=== PATIENT | female | born 1950 | race Caucasian/White ===

== ENCOUNTER → 2020-12-31 10:43 | Outpatient (BNVA) | payer MEDICARE, OTHER, SELFPAY | PROVIDERS: Family Provider Student in an Organized Health Care Education/Training Program; PCP Student in an Organized Health Care Education/Training Program; Visit Provider Nurse Practitioner Family | DX: E04.9 Nontoxic goiter, unspecified (principal); Z92.29 Personal history of other drug therapy; Z51.81 Encounter for therapeutic drug level monitoring; R13.10 Dysphagia, unspecified; K21.9 Gastro-esophageal reflux disease without esophagitis | CPT/HCPCS: 80053; 84439; 84443; 84481; 85025 ==

== ENCOUNTER 2021-01-20 12:57 | Outpatient (CLI) | payer MEDICARE, OTHER, SELFPAY ==
--- NOTE | 2021-01-20 13:15 | US_ITS ---
WS: [id number] ULTRASOUND THYROID TECHNIQUE: Ultrasound of the thyroid. CLINICAL INFORMATION: R13.10 - Dysphagia, unspecified COMPARISON: None. FINDINGS: Thyroid: Right and left thyroid lobes are normal in size and echotexture. No thyroid nodules are pres ent. Right thyroid lobe: 3.1 cm x 1.6 cm x 1.1 cm Left thyroid lobe: 2.8 cm x 0.9 cm x 1.5 cm. Isthmus: 1.5 mm. Cervical lymphadenopathy: None. US/US thyroid [id number] IMPRESSION: Normal thyroid ultrasound examination.
== END 2021-01-20 12:58 | disposition home or self-care (01) ==
LOC: US 12:57
PROVIDERS: PCP Student in an Organized Health Care Education/Training Program; Visit Provider Nurse Practitioner Family
DX: R13.10 Dysphagia, unspecified (principal)
CPT/HCPCS: 76536

== ENCOUNTER → 2021-01-28 10:52 | Outpatient (BNVA) | payer MEDICARE, OTHER, SELFPAY | PROVIDERS: PCP Nurse Practitioner Family; Visit Provider Nurse Practitioner Family | DX: R35.0 Frequency of micturition (principal); R11.2 Nausea with vomiting, unspecified; R13.10 Dysphagia, unspecified; K21.9 Gastro-esophageal reflux disease without esophagitis; K44.9 Diaphragmatic hernia without obstruction or gangrene | CPT/HCPCS: 80053; 81000; 85025 ==

== ENCOUNTER → 2021-02-10 08:59 | Outpatient (BNVA) | payer MEDICARE, OTHER, SELFPAY | PROVIDERS: PCP Nurse Practitioner Family; Visit Provider Surgery | DX: R13.10 Dysphagia, unspecified (principal); Z20.822 Contact with and (suspected) exposure to COVID-19 | CPT/HCPCS: 87635 ==

== ENCOUNTER 2021-02-17 09:25 | Day surgery (SDC) | payer MEDICARE, OTHER, SELFPAY ==
[2021-02-15 13:23] VITALS: BMI 26.5
[2021-02-17 10:15] VITALS: BP 131/84; PULSE 75; RESP 18; TEMP 36.6; O2SAT 98
--- NOTE | 2021-02-17 10:23 | ANES.PREANE2 ---
Pre-Anesthetic Assessment Pre-Anesthetic Assessment: Height/Weight: Height 1.6 m Weight 68.039 kg Preop Diagnosis: upper gi symptoms Proposed Procedure: Operation Date: 02/17/21 11:00 Proposed Procedures p EGD Dilation W/ Balloon 19261 R13.10(Not Applicable) - Luis Daniel MD Was Beta Rad taken within 24 hours: N/A Was Clonidine taken within 24 hours: N/A Social: Social History: No alcohol and No tobacco Exam: Pre-Anes Outpt Exam: alert, oriented x 3, clear to auscultation bilaterally and regular rate & rhythm Airway: Submandibular: WNL Cervical ROM: WNL MP: 2 Dentition: Full CV/HEM: CV/HEM: DVT GI: GI: GERD Anesthetic Plan: ASA status: 2 Anesthesia: MAC Risk of > 500 ml blood loss (7ml/kg in children): No PFSH Anesthesia PFSH: Medical History DVT (deep venous thrombosis) Dysphagia GERD (gastroesophageal reflux disease) Hiatal hernia Kidney disease Osteoporosis Pulmonary embolus Surgical History History of abdominal hysterectomy History of appendectomy History of esophagogastroduodenoscopy (EGD) (~09/2019) History of laparoscopic cholecystectomy History of tonsillectomy and adenoidectomy Status post colonoscopy Family History Denies family history of Anesthesia complication Bleeding disorder Social History Smoking and tobacco status: never smoked Second hand smoke exposure: No Alcohol intake: never Adopted: No Caregiver/support person: Yes Lives independently: Yes Housing: House Marital status: / service: No Current occupational status: retired Current occupational exposures/hazards: No Pets and animals: No History of recent travel: No Sexually active: No Current gender identity: Female Michael/Mormonism: Zoroastrianism Special michael needs: No Agree to transfusion: No Financial difficulty paying for basics: Decline to Answer Data Anesthesia Cardiac Studies: No Data to Display
[2021-02-17] MEDS: sodium chloride 0.9% 1,000 ML 30 ML IV (10:26)
[2021-02-17 11:56] VITALS: BP 118/68; PULSE 74; RESP 18; TEMP 36.6; O2SAT 99
--- NOTE | 2021-02-17 12:02 | W.PM.OPSUD ---
Surgery/Procedure H&P Update DATE OF PROCEDURE: February 17, 2021 DATE H&P PERFORMED: 02/08/21 H&P UPDATE INFORMATION: I have reviewed H&P completed within last 30 days, I have examined patient prior to procedure and No changes to prior documentation PREOP DIAGNOSIS: upper gi symptoms PLANNED PROCEDURE: Operation Date: 02/17/21 11:00 Proposed Procedures p EGD Dilation W/ Balloon 00091 R13.10(Not Applicable) - Luis Daniel MD
[2021-02-17 12:10] VITALS: BP 130/75; PULSE 71; RESP 18; TEMP 36.7; O2SAT 98
--- NOTE | 2021-02-17 17:11 | ANE.PACU2 ---
Inpatient post-anesthesia follow up: Airway intact: Yes Vital signs: Temperature 98.1 F Pulse Rate 71 Respiratory Rate 18 Blood Pressure 130/75 Pulse Oximetry 98 Oxygen Delivery Me thod Room Air Oxygen Flow Rate Fraction of Inspir ed Oxygen Hydration adequate: Yes Nausea and vomiting: No Pain level: 1 Mental status: Baseline
== END 2021-02-17 12:36 | disposition home or self-care (01) ==
PROVIDERS: PCP Nurse Practitioner Family; Visit Provider Surgery
DX: R13.10 Dysphagia, unspecified (principal); K22.2 Esophageal obstruction; K44.9 Diaphragmatic hernia without obstruction or gangrene; Z86.718 Personal history of other venous thrombosis and embolism; K21.9 Gastro-esophageal reflux disease without esophagitis; M81.0 Age-related osteoporosis without current pathological fracture
CPT/HCPCS: 43249; 96360; 96361; J2704; J7030

== ENCOUNTER 2021-04-28 09:48 | Outpatient (CLI) | payer MEDICARE, OTHER, SELFPAY ==
--- NOTE | 2021-04-28 09:57 | MM_ITS ---
WS: [id number] BILATERAL SCREENING DIGITAL MAMMOGRAM WITH CAD HISTORY: SCREENING COMPARISON: 05/26/2019 and 05/15/2018 Bilateral CC and MLO views submitted. Computer aided detection analyzed. Breast composition: There are scattered areas of fibroglandular density. No suspicious masses, microc alcifications or architectural distortion. Scattered calcifications in each breast. MM/[place] [id number] IMPRESSION: BI-RADS: 2-Benign FOLLOW UP: 1 Year Follow-up
== END 2021-04-28 09:49 | disposition home or self-care (01) ==
LOC: RADSHAW 09:55
PROVIDERS: PCP Nurse Practitioner Family; Visit Provider Nurse Practitioner Family
DX: Z12.31 Encounter for screening mammogram for malignant neoplasm of breast (principal)
CPT/HCPCS: 77067

== ENCOUNTER 2021-10-18 10:25 | Outpatient (CLI) | payer MEDICARE, OTHER, SELFPAY ==
[2021-10-18 10:45] VITALS: BMI 26.5
--- NOTE | 2021-10-18 11:12 | XRR_ITS ---
PROCEDURE INFORMATION: Exam: XR Chest Exam date and time: 10/18/2021 11:12 AM Age: 71 years old Clinical indication: Cough; Additional info: R05.9 - cough, unspecified TECHNIQUE: Imaging protocol: XR of the chest. Views: 2 views. Total images: 2 COMPARISON: No relevant prior studies available. FINDINGS: Lungs: Unremarkable. No consolidation. Pleural spaces: Unremarkable. No pleural effusion. No pneumothorax. Heart/Mediastinum: Unremarkable. No cardiomegaly. Bones/joints: Unremarkable. Organs: Surgical clips are present in the right upper quadrant which are suggestive of prior cholecystectomy. XR/XR chest 2V* [id number] IMPRESSION: No acute cardiopulmonary process.
--- NOTE | 2021-10-18 11:51 | NMCV_ITS ---
NM marc perf SPECT r/s* [id number] Yola Hassan Age: 71 Gender: F : 1950 Exam Date: 10/18/2021 11:49 Ordering Phys: Nubia Us Technologist: ORIANA Roche Exam Location: [facility] Indications: SHORTNESS OF BREATH STRESS TEST Please see separate stress test report in [facility] for full findings IMAGE PROTOCOL Rest/Stress 1 Exercise Day Radiopharmaceutical Dose (mCi) Administration Site Administered by Rest: Tc-99m 10.9 IV ORIANA Smart Sestamibi Stress:Tc-99m 32.7 IV ORIANA Roche Sestamiodalis Rest: 18-Oct-2021 60 Discovery 630 Stress: 18-Oct-2021 30 Discovery 630 Radiopharmaceutical was injected at 90 % maximum heart rate. Images obtained in supine and prone position. SPECT RESULTS Technical Quality: Excellent Raw Data Analysis: Normal Image Corrections: No attenuation or motion correction applied Summed Stress Score: 0 Summed Rest Score: 0 Summed Difference Score: 0 PERFUSION FINDINGS SPECT images demonstrate homogeneous tracer distribution throughout the myocardium. FUNCTIONAL RESULTS (calculated via Gated SPECT) Stress Image LV EF (%): 79 Stress EDV (mL):52 TID: 1.06 Stress ESV (mL):11 Rest Image LV EF (%): 79 FUNCTIONAL FINDINGS: There is normal left ventricular systolic function. IMPRESSIONS Myocardial perfusion imaging is normal. EKG segment will be documented separately. Brenton Magana MD (Electronically Signed) Final Date: 18 October 2021 18:26 S
[2021-10-18 12:38] LABS: Basophils # 0.1 10^3/uL (0.0-0.1); Basophils % 0.8 %; Eosinophils # 0.1 10^3/uL (0.0-0.8); Eosinophils % 1.4 %; Hematocrit 42.3 % (37.0-47.0); Hemoglobin 13.3 g/dL (11.5-15.3); Lymphocytes # 1.9 10^3/uL (0.8-4.8); Lymphocytes % 31.7 %; Mean Corpuscular HGB Conc 31.4 g/dL (30.0-36.0); Mean Corpuscular Hemoglobin 30.9 pg (28.0-34.0); Mean Corpuscular Volume 98.1 fl (81-99); Mean Platelet Volume 10.9 fL (7.4-10.4); Monocytes # 0.6 10^3/uL (0.2-0.9); Monocytes % 10.3 %; Neutrophils # 3.27 10^3/uL (1.8-7.7); Neutrophils % 55.5 %; Nucleated Red Blood Cells % 0 %; Platelet Count 273 10^3/cmm (130-400); Red Blood Count 4.31 10^6/uL (4.1-5.3); Red Cell Distribution Width 12.3 % (12.1-15.1); White Blood Count 5.9 10^3/uL (4.0-10.0)
[2021-10-18 12:53] VITALS: BP 153/88; PULSE 81
--- NOTE | 2021-10-18 13:00 | ECG_ITS ---
[facility] Test Date: 2021-10-18 Pat Name: Yola Hassan Department: Room: Gender: Female Barista: Mimi Jauregui : 1950 Requested By: Sulema Us Order Number: [id number] Nigel MD: FATOU FARIAS Interpretive Statements NAME OF STUDY: LEXISCAN SESTAMIBI STRESS TEST INDICATION: Chest Pain, SEND RESULTS TO SULEMA US NOTE: Please note that this is the electrocardiogram portion of the Lexiscan/Sestamibi stress test. The perfusion scan will be documented separately. DATA: Baseline heart rate was 84 beats per minute. Baseline blood pressure was 153/81 millimeters of mercury. Target heart rate was 148. Maximum heart rate achieved was 188. which was 127 % of the predicted target heart rate. Maximum blood pressure was 230/103 millimeters of mercury. The reason for ending the test was completion of the protocol. The patient did not experience any symptoms. ELECTROCARDIOGRAM: BASELINE: Sinus rhythm. Normal axis. Otherwise, no ST-T changes suggestive of ischemia noted. No arrhythmia noted. EXERCISE: After Lexiscan injection, no ST-T changes suggestive of ischemic noted. No arrhythmia noted. 1. EKG not suggestive of ischemia 2. Lexiscan injection unremarkable. 3. Perfusion scan will be documented separately. Electronically Signed On 10-23-2021 15:18:28 MAINTENANCE TEAM MEMBER by FATOU FARIAS [email or web address]
[2021-10-18 13:19] LABS: 25 Hydroxy Vitamin D 38 ng/mL (30-100); Alanine Aminotransferase 21 U/L (0-33); Albumin Level 3.9 g/dL (3.5-5.2); Alkaline Phosphatase 82 IU/L (35-105); Anion Gap 17.7 (5-19); Aspartate Amino Transferase 26 U/L (0-32); Blood Urea Nitrogen 12 mg/dL (8-23); Calcium 8.7 mg/dL (8.5-10.5); Carbon Dioxide 22 mmol/L (22-29); Chloride 104 mmol/L (98-107); Chol HDL Ratio 4.83 mg/dL (0.0-4.40); Cholesterol 285 mg/dL (0-200); Globulin 2.9 g/dL (1.3-4.6); Glucose 81 mg/dL (65-115); HDL Cholesterol 59 mg/dL (60-100); LDL Cholesterol Calculated 202 mg/dL (50-129); LDL HDL Ratio 3.42 RATIO (0.00-3.22); Osmolality Calculated 287 mOsm/kg (285-295); Potassium 4.7 mmol/L (3.5-5.1); Sodium 139 mmol/L (136-145); Thyroid Stimulating Hormone 3.14 uIU/mL (0.27-4.20); Total Bilirubin 0.7 mg/dL (0.15-1.2); Total Protein 6.8 g/dL (6.6-8.7); Triglycerides 121 mg/dL (0-150)
== END 2021-10-18 10:26 | disposition home or self-care (01) ==
PROVIDERS: PCP Nurse Practitioner Family; Visit Provider Nurse Practitioner Family
DX: R07.89 Other chest pain (principal); R05.9 Cough, unspecified; R53.83 Other fatigue; E55.9 Vitamin D deficiency, unspecified; Z79.01 Long term (current) use of anticoagulants; E78.5 Hyperlipidemia, unspecified; R06.02 Shortness of breath
CPT/HCPCS: 71046; 78452; 80053; 80061; 82306; 84443; 85025; 93017; A9500

== ENCOUNTER → 2021-11-09 10:56 | Outpatient (BNVA) | payer MEDICARE, OTHER, SELFPAY | PROVIDERS: PCP Nurse Practitioner Family; Visit Provider Nurse Practitioner Family | DX: Z20.822 Contact with and (suspected) exposure to COVID-19 (principal); N39.0 Urinary tract infection, site not specified | CPT/HCPCS: 81000; 87086; 87635 ==

== ENCOUNTER 2021-11-30 08:46 | Outpatient (CLI) | payer MEDICARE, OTHER, SELFPAY ==
--- NOTE | 2021-11-30 09:30 | FL_ITS ---
WS: [id number] Modified barium swallow, 11/30/2021 Clinical Data: R13.10 - Dysphagia, unspecified Comparison: None. Fluoroscopy time: 2.1 minutes. Findings: The patient initiated the oral transmission of food and demonstrated minimal tongue weakness. As the bolus number and amount increased there was weakness. No aspiration or penetration was noted. The pat ient swallowed the barium tablet without hesitation and it passed normally into the stomach. FL/FL barium swallow modifd 62020 Impression: Weakness of oral transmission of food which could lead to aspiration or penetra tion.
== END 2021-11-30 08:47 | disposition home or self-care (01) ==
PROVIDERS: PCP Nurse Practitioner Family; Visit Provider Surgery
DX: R13.10 Dysphagia, unspecified (principal)
CPT/HCPCS: 74230; 92611

== ENCOUNTER 2022-05-08 10:38 | Outpatient (CLI) | payer MEDICARE, OTHER, SELFPAY ==
--- NOTE | 2022-05-08 10:46 | MM_ITS ---
WS: [id number] BILATERAL SCREENING DIGITAL BREAST TOMOSYNTHESIS MAMMOGRAM WITH CAD HISTORY: SCREENING COMPARISON: 04/28/2021 and 05/26/2019 Bilateral CC and MLO views with tomosynthesis and synthetic mammography submitted. Computer aided det ection analyzed. Breast composition: There are scattered areas of fibroglandular density. No suspicious masses, microc alcifications or architectural distortion. Benign calcifications. MM/[place] [id number] IMPRESSION: BI-RADS: 2-Benign FOLLOW UP: 1 Year Follow-up
== END 2022-05-08 10:39 | disposition home or self-care (01) ==
LOC: RAD 10:39
PROVIDERS: PCP Nurse Practitioner Family; Visit Provider Nurse Practitioner Family
DX: Z12.31 Encounter for screening mammogram for malignant neoplasm of breast (principal)
CPT/HCPCS: 77063; 77067

== ENCOUNTER → 2022-10-18 15:26 | Outpatient (BNVA) | payer MEDICARE, OTHER, SELFPAY | PROVIDERS: PCP Nurse Practitioner Family; Visit Provider Nurse Practitioner Family | DX: Z79.899 Other long term (current) drug therapy (principal); Z79.01 Long term (current) use of anticoagulants; E55.9 Vitamin D deficiency, unspecified | CPT/HCPCS: 80053; 82306; 85025 ==

== ENCOUNTER → 2022-11-27 15:01 | Outpatient (BNVA) | payer MEDICARE, OTHER, SELFPAY | PROVIDERS: PCP Nurse Practitioner Family; Visit Provider Nurse Practitioner Family | DX: J02.9 Acute pharyngitis, unspecified (principal); R52 Pain, unspecified; R50.9 Fever, unspecified; J01.10 Acute frontal sinusitis, unspecified; K04.7 Periapical abscess without sinus; K21.9 Gastro-esophageal reflux disease without esophagitis | CPT/HCPCS: 87400; 87426; 87880 ==

== ENCOUNTER → 2023-01-05 09:50 | Outpatient (BNVA) | payer MEDICARE, OTHER, SELFPAY | PROVIDERS: PCP Nurse Practitioner Family; Visit Provider Nurse Practitioner Family | DX: Z79.01 Long term (current) use of anticoagulants (principal) | CPT/HCPCS: 85025 ==

== ENCOUNTER 2023-02-01 07:41 | Outpatient (CLI) | payer MEDICARE, OTHER, SELFPAY ==
--- NOTE | 2023-02-01 07:45 | US_ITS ---
WS: [id number] Complete ABDOMINAL ULTRASOUND HISTORY: R10.11 - Right upper quadrant pain COMPARISON: 05/11/2011 Liver: 13.4 cm in length. Normal size liver and echogenicity. No bile duct dilatation or mass. Portal Vein: Normal hepatopetal flow with monophasic waveform. Gallbladder: Status post cholecystectomy. CBD: 0.4 cm Pancreas: Obscured by bowel gas. Right kidney: 8.9 cm x 4.8 x 4.5 cm. Cortex:1.1 cm. Low normal size kidney. Increased echogenicity throughout the RIGHT kidney. No hydronephrosis or mari d mass. Progression of chronic medical renal findings since the prior study. Left kidney: 4.4 cm x 2.7 cm x 2.6 cm. Cortex: 0.6 cm. Small atrophic kidney is chronic. Progressive atrophy since 2010. Spleen: Normal size and echogenicity. Aorta and IVC: Unremarkable abdominal aorta and IVC. US/US abdomen complete* [id number] Impression: 1. Status post cholecystectomy. 2. Progressive chronic medical renal disease and atrophy RIGHT kidney since 03 09. No obstruction. 3. Progressive, known significant atrophy LEFT kidney.
== END 2023-02-01 07:42 | disposition home or self-care (01) ==
LOC: RAD 07:47
PROVIDERS: PCP Nurse Practitioner Family; Visit Provider Nurse Practitioner Family
DX: R10.11 Right upper quadrant pain (principal); Z90.49 Acquired absence of other specified parts of digestive tract
CPT/HCPCS: 76700

== ENCOUNTER → 2023-02-06 14:15 | Outpatient (BNVA) | payer MEDICARE, OTHER, SELFPAY | PROVIDERS: PCP Nurse Practitioner Family; Visit Provider Nurse Practitioner Family | DX: N28.9 Disorder of kidney and ureter, unspecified (principal) | CPT/HCPCS: 80048 ==

== ENCOUNTER → 2023-03-20 11:02 | Outpatient (BNVA) | payer MEDICARE, OTHER, SELFPAY | PROVIDERS: PCP Nurse Practitioner Family; Visit Provider Nurse Practitioner Family | DX: N39.0 Urinary tract infection, site not specified (principal) | CPT/HCPCS: 81000 ==

== ENCOUNTER 2023-05-09 10:21 | Outpatient (CLI) | payer MEDICARE, OTHER, SELFPAY ==
--- NOTE | 2023-05-09 | USCV_ITS ---
Yola Hassan Age: 73 Gender: F : 1950 Exam Date: 05/09/2023 11:07 Ordering Phys: Nakul Sykes MD Technologist: Yeison Alonso Exam Location[place] [facility] [place] Indication: hypertension Aortic Velocity @ SMA (cm/s) 66.1 RIGHT KIDNEY LEFT KIDNEY Velocity (cm/s) Velocity (cm/s) Sys/Wylie Sys/Wylie Resistive Index Resistive Index 88.6 / 28.8 0.67 Proximal Renal Artery 33.0 / 7.2 0.78 95.4 / 21.4 0.78 Mid Renal Artery 34.9 / 12.0 0.66 80.1 / 80.1 0.00 Distal Renal Artery 54.3 / 18.2 0.66 43.6 / 14.1 0.68 Hilar 35.1 / 12.0 0.66 22.4 / 11.2 0.50 Upper Pole 32.5 / 10.8 0.67 43.8 / 14.0 0.68 Mid Pole 22.8 / 6.7 0.70 29.6 / 10.3 0.65 Lower Pole 25.8 / 6.7 0.74 1.40 Renal Aortic Ratio 0.82 Accleration Index (cm/sec2) 319.00 Hilar 156.00 199.00 Upper Pole 156.00 281.00 Mid Pole 116.00 152.00 Lower Pole 145.00 97.7 Kidney Length (mm) 104.4 CONCLUSIONS Normal kidney dimensions bilaterally. No hydronephrosis. Normal color flow Doppler, peak systolic velocities, Renal/Aortic peak systolic velocity ratio and resistive indices noted in bilateral main, segmental and interlobar renal arteries. Esteban Jesus MD (Electronically Signed) Final Date: 10 May 2023 17:19 S
[2023-05-09 12:30] LABS: Urine Color Yellow (Yellow)
[2023-05-09 12:31] LABS: Add Urine Microscopic? YES; Bilirubin Urine Neg (Negative); Blood Urine Neg (Negative); Glucose Urine UA Norm (Normal); Ketones Urine 1+ (Negative); Leukocyte Esterase Urine 1+ (Negative); Mucus Urine 3+ /hpf; Nitrate Urine Negative (Negative); Protein Urine Neg (Negative); RBC Urine 0-4 /hpf (0-2); Squamous Epithelial Cell Urine 0-4 /hpf (0-5); Urine Appearance SL Hazy (CLEAR); Urobilinogen Urine Norm (Negative); pH Urine 6 (5-7)
[2023-05-09 12:32] LABS: Add Urine Culture? No
[2023-05-09 12:46] LABS: Creatinine Urine, Random 203 mg/dL (28-217); Microalbum Creatinine Ratio Ur 5 mg/dL (0-20); Microalbumin Random Urine 1 ug/dL (0-20)
[2023-05-10 16:40] LABS: Anti-Nuclear Antibody Screen NEGATIVE (NEGATIVE)
== END 2023-05-09 10:22 | disposition home or self-care (01) ==
PROVIDERS: PCP Nurse Practitioner Family; Visit Provider Internal Medicine
DX: I12.9 Hypertensive chronic kidney disease with stage 1 through stage 4 chronic kidney disease, or unspecified chronic kidney disease (principal); N18.9 Chronic kidney disease, unspecified
CPT/HCPCS: 36415; 81001; 82044; 86038; 93975

== ENCOUNTER 2023-05-28 09:47 | Outpatient (CLI) | payer MEDICARE, OTHER, SELFPAY ==
--- NOTE | 2023-05-28 09:54 | MM_ITS ---
WS: [id number] BILATERAL SCREENING DIGITAL TOMOSYNTHESIS MAMMOGRAM WITH CAD HISTORY: SCREENING COMPARISON: 05/08/2022 and 04/28/2021 Bilateral CC and MLO views with tomosynthesis and synthetic mammography submitted. Computer aided det ection analyzed. Breast composition: There are scattered areas of fibroglandular density. No suspicious masses, microc alcifications or architectural distortion. Benign calcifications within each breast. IMPRESSION: MM/[place] [id number] BI-RADS: 2-Benign FOLLOW UP: 1 Year Follow-up
== END 2023-05-28 09:48 | disposition home or self-care (01) ==
LOC: RAD 09:52 → MOBLMAM 09:53
PROVIDERS: PCP Nurse Practitioner Family; Visit Provider Nurse Practitioner Family
DX: Z12.31 Encounter for screening mammogram for malignant neoplasm of breast (principal)
CPT/HCPCS: 77063; 77067

== ENCOUNTER → 2023-09-27 10:33 | Outpatient (BNVA) | payer MEDICARE, OTHER, SELFPAY | PROVIDERS: PCP Nurse Practitioner Family; Visit Provider Nurse Practitioner Family | DX: Z79.01 Long term (current) use of anticoagulants (principal); E78.5 Hyperlipidemia, unspecified; N28.9 Disorder of kidney and ureter, unspecified | CPT/HCPCS: 80053; 80061; 85025 ==

== ENCOUNTER → 2023-12-12 14:55 | Outpatient (BNVA) | payer MEDICARE, OTHER, SELFPAY | PROVIDERS: PCP Nurse Practitioner Family; Visit Provider Nurse Practitioner Family | DX: N39.0 Urinary tract infection, site not specified (principal) | CPT/HCPCS: 93005 ==

== ENCOUNTER → 2023-12-12 15:14 | Outpatient (BNVA) | payer MEDICARE, OTHER, SELFPAY | PROVIDERS: PCP Nurse Practitioner Family; Visit Provider Nurse Practitioner Family | DX: N39.0 Urinary tract infection, site not specified (principal) | CPT/HCPCS: 81000; 87086 ==

== ENCOUNTER 2023-12-13 09:09 | Outpatient (CLI) | payer MEDICARE, OTHER, SELFPAY ==
--- NOTE | 2023-12-13 09:13 | XR_ITS ---
WS: [id number] Exam: XR chest 2V* [id number] Date/Time of Exam: 12/13/2023 9:22 AM Reason For Exam: R06.00 - Dyspnea, unspecified Comparison 10/18/2021. The lungs are hyperinflated and clear. Heart size is normal. The mediastinum is normal in contour. No pleural effusions. Bony structures appear normal. IMPRESSION: 1. Pulmonary hyperinflation which may indicate obstructive lung disease. 2. No acute process noted.
--- NOTE | 2023-12-13 09:13 | XR_ITS ---
WS: [id number] Exam: XR foot RT min 3V* [id number] Date/Time of Exam: 12/13/2023 9:22 AM Reason For Exam: M79.671 - Pain in right foot No fracture or dislocation. Degenerative changes in the midfoot joints. DJD at the first MP joint. No soft tissue foreign bodies are seen. IMPRESSION1. Degenerative changes. No fracture or other significant finding.
== END 2023-12-13 09:10 | disposition home or self-care (01) ==
LOC: RAD 09:10
PROVIDERS: PCP Nurse Practitioner Family; Visit Provider Nurse Practitioner Family
DX: M19.071 Primary osteoarthritis, right ankle and foot (principal); R06.00 Dyspnea, unspecified; M79.671 Pain in right foot
CPT/HCPCS: 71046; 73630

== ENCOUNTER → 2024-04-09 11:14 | Outpatient (BNVA) | payer MEDICARE, OTHER, SELFPAY | PROVIDERS: PCP Nurse Practitioner Family; Visit Provider Nurse Practitioner Family | DX: I10 Essential (primary) hypertension (principal); R06.09 Other forms of dyspnea; R53.83 Other fatigue; R03.0 Elevated blood-pressure reading, without diagnosis of hypertension | CPT/HCPCS: 80053; 80061; 83880; 85025 ==

== ENCOUNTER 2024-04-23 10:00 | Outpatient (CLI) | payer MEDICARE, OTHER, SELFPAY ==
--- NOTE | 2024-04-23 10:00 | USCV_ITS ---
Yola Hassan Age: 74 Gender: F : 1950 Exam Date: 04/23/2024 10:15 Ordering Phys: Nubia Us-Zeenat BERMEO Technologist: [place] [facility] [place]: suarez BP: 130 / 80 HR: Rhythm: Sinus Technical Quality: Adequate MEASUREMENTS (Male / Female) Normal Values 2D ECHO LVOT Diameter 1.9 cm LV Ejection Fraction MOD 2C 61.8 % LV Ejection Fraction 2C AL 63.9 % LA Diameter 3.4 cm RA Systolic Volume 4C AL 15.4 ml RA Systolic Volume 4C MOD 15.4 ml LA Sys Volume AL 17.6 cm cubed LA Sys Volume Index AL 9.9 cm cubed/m squared Aorta at Sinotubular Diameter 2.1 cm IVC Diameter 1.9 cm M-MODE LA Ao Ratio MM 1.4 AV Cusp Separation MM 2.0 cm DOPPLER AV Peak Velocity 104.0 cm/s LVOT Peak Velocity 94.0 cm/s AV Area Cont Eq vti 2.4 cm squared AV Area Cont Eq pk 2.6 cm squared MV Peak Velocity 88.0 cm/s MV Area PHT 3.6 cm squared Mitral E to A Ratio 0.6 TR Peak Velocity 114.0 cm/s TR Peak Gradient 5.2 mmHg TV Peak E Velocity 63.0 cm/s Right Atrial Pressure 3.0 mmHg Pulmonary Artery Systolic Pressu 8.2 mmHg PV Peak Velocity 98.0 cm/s FINDINGS Left Ventricle Normal left ventricular size and systolic function, EF 62%.no regional wall motion abnormalities. Grade I/IV diastolic dysfunction (abnormal relaxation filling pattern), normal to mildly elevated filling pressures. Mild left ventricular hypertrophy. Right Ventricle The right ventricle is normal in size and function. Right Atrium The right atrium is normal in size. Left Atrium The left atrium is normal in size. Mitral Valve Structurally normal mitral valve. Aortic Valve Trace aortic valve regurgitation. Tricuspid Valve No gross abnormalities noted Pulmonic Valve Structurally normal pulmonic valve. Pericardium Normal pericardium without effusion. Aorta Normal ascending aorta dimension. IVC Inferior vena cava not visualized. CONCLUSIONS Normal left ventricular size and systolic function, EF 62%.no regional wall motion abnormalities. Grade I/IV diastolic dysfunction (abnormal relaxation filling pattern), normal to mildly elevated filling pressures. Mild left ventricular hypertrophy. Trace aortic valve regurgitation. Normal cardiac chamber sizes. No gross valvular abnormalities. No intracardiac masses No similar previous studies are available for comparison Dr Debra Velazquez MD FACC (Electronically Signed) Final Date: 23 April 2024 20:25 S
== END 2024-04-23 10:00 | disposition home or self-care (01) ==
LOC: RAD 10:00
PROVIDERS: PCP Nurse Practitioner Family; Visit Provider Nurse Practitioner Family
DX: R06.09 Other forms of dyspnea (principal); I51.7 Cardiomegaly
CPT/HCPCS: 93306

== ENCOUNTER → 2024-05-05 13:54 | Outpatient (BNVA) | payer MEDICARE, OTHER, SELFPAY | PROVIDERS: PCP Nurse Practitioner Family; Visit Provider Nurse Practitioner Family | DX: R30.0 Dysuria (principal); H60.90 Unspecified otitis externa, unspecified ear; S40.861A Insect bite (nonvenomous) of right upper arm, initial encounter; W57.XXXA Bitten or stung by nonvenomous insect and other nonvenomous arthropods, initial encounter; H60.331 Swimmer's ear, right ear; R35.0 Frequency of micturition | CPT/HCPCS: 81000 ==

== ENCOUNTER 2024-05-08 13:04 | Emergency (ER) | payer MEDICARE, OTHER, SELFPAY ==
[2024-05-08 13:05] VITALS: BP 161/88; PULSE 78; RESP 16; TEMP 36.6; O2SAT 98
--- NOTE | 2024-05-08 13:39 | ED_ITS ---
HPI - Eye Problem 2 General: Chief complaint: Eye Problems Stated complaint: eye swelling and redness Time Seen by Provider: 05/08/24 13:19 History of Present Illness: 74-year-old female comes in today for co mplaints of swelling and redness around both eyes. Patient reports some mild tenderness. Patient was seen on the for an insect bite to her right arm which caused redness and swelling. Patient was treated with steroids and recommended continue with Benadryl and steroids. Patient has yet to start the steroid pack but she was ordered. Patient was seen today due to the swelling around her eyes that she noticed last night. The swelling has improved this morning but patient reports some mild tenderness to the right periorbital region. The provider that seen patient this morning was concern for possible periorbital cellulitis and referred her to the emergency room for further evaluation and treatment. Patient appears nontoxic. Patient is concerned about her blood pressure being elevated. Review of Systems 2 General: Reports: 10 or more systems reviewed and unremarkable except in HPI and below PFSH ED 2 PFSH: Medical History Vitamin D deficiency Pulmonary embolus DVT (deep venous thrombosis) GERD (gastroesophageal reflux disease) Hiatal hernia Kidney disease Osteoporosis Surgical History Status post colonoscopy History of appendectomy History of esophagogastroduodenoscopy (EGD) (02/17/21) Schatzki ring, hiatal hernia dilated to 20mm History of abdominal hysterectomy History of tonsillectomy and adenoidectomy History of laparoscopic cholecystectomy Family History Denies family history of Anesthesia complication Bleeding disorder Social History Smoking and tobacco/nicotine status: former use of tobacco/nicotine (stopped 35 years ago) Quit status (tobacco/nicotine): has quit using Second hand smoke exposure: No Alcohol intake: never Substance/Drug Use: never Adopted: No Caregiver/support person: Yes Lives independently: Yes Housing: House Marital status: / service: No Current occupational status: retired Current occupational exposures/hazards: No Pets and animals: No Sexually active: No Do you think of yourself as: Straight/Heterosexual Current gender identity: Female Zelda/Jew: [employer] Special zelda needs: No Agree to transfusion: No Physical Exam 2 Const: COMMON NORMALS: alert HENMT: COMMON NORMALS: normocephalic HEAD & SCALP: normocephalic Eye: OTHER: Mild edema to periorbital regions bilateral eyes worse on the right than left. Pupils are equal and reactive. Pale conjunctiva. Neck/C-Spine: COMMON NORMALS: full ROM Resp: COMMON NORMALS: normal respiratory effort and clear to auscultation bilaterally AUSCULTATION: clear to auscultation bilaterally Cardio: COMMON NORMALS: regular rate RATE: regular rate GI: COMMON NORMALS: Soft to palpation PALPATION: Yes Soft to palpation Extremity: COMMON NORMALS: normal to inspection Neuro: SENSORIUM/ORIENTATION: Yes alert Skin: NARRATIVE SKIN EXAM: Mild redness noted to the right upper arm. Mild redness to bilateral periorbital regions of the eyes. Course 2 Vital Signs: Vital signs: Vital Signs Temperature 97.9 F 05/08/24 13:05 Pulse Rate 78 05/08/24 13:05 Respiratory Rate 16 05/08/24 13:05 Blood Pressure 161/88 05/08/24 13:05 Pulse Oximetry 98 05/08/24 13:05 Oxygen Delivery Me thod Room Air 05/08/24 13:05 MDM - Eye Problem Medical Decision Making Patient had a insect bite on the or and was seen by a primary care provider and given a dose of steroids and placed on a Medrol Dosepak and recommended to use Benadryl for her symptoms. Patient saw another provider today due to some swelling around her eyes and was recommended to come to the ER for further evaluation to rule out periorbital cellulitis. On exam we note some edema to bilateral periorbital regions of the eyes worse on the right than the left. Patient has pale conjunctiva. Patient continues to have some mild redness and swelling to the right upper arm. Differential diagnosis includes but not limited to systemic reaction to insect bite, localized reaction insect bite, contact dermatitis, periorbital cellulitis unlikely, exacerbation of psoriasis. CT scan of the orbits noted no fluid collection or signs of orbital cellulitis. Mild edema was noted to bilateral eyes. I believe patient's probably had a systemic reaction to her insect bite. Patient was seen on the and given a dose of steroids but has yet to start the oral steroids she was prescribed. We will give patient a dose of steroids IV. Recommend the use of Claritin or Zyrtec to help with the discomfort. May be used some hydrocortisone cream to the face to help with redness and itching. No signs of severe distress was noted. Patient was discharged home. Lab Data 05/08/24 13:58 05/08/24 13:[address] 05/08/24 14:01 IMPRESSION: Mild soft tissue edema over the maxillary sinuses and orbits. Otherwise negative. Laboratory Results WBC 9.58 10^3/uL (3.29-11.43) 05/08/24 13:58 RBC 4.34 10^6/uL (3.85-5.65) 05/08/24 13:58 Hgb 13.50 g/dL (11.27-16.99) 05/08/24 13:58 Hct 40.8 % (36-47) 05/08/24 13:58 MCV 94.0 fl (85-98) 05/08/24 13:58 MCH 31.1 pg (27-33) 05/08/24 13:58 MCHC 33.1 g/dL (30-55) 05/08/24 13:58 RDW 11.9 % (12.1-15.1) L 05/08/24 13:58 Plt Count 281 10^3/cmm (157-399) 05/08/24 13:58 MPV 10.7 fL (7.4-10.4) H 05/08/24 13:58 Neut % (Auto) 69.6 % 05/08/24 13:58 Lymph % (Auto) 19.1 % 05/08/24 13:58 [place] % (Auto) 9.7 % 05/08/24 13:58 Eos % (Auto) 0.8 % 05/08/24 13:58 Baso % (Auto) 0.5 % 05/08/24 13:58 Neut # (Auto) 6.66 10^3/uL (1.8-7.7) 05/08/24 13:58 Lymph # (Auto) 1.8 10^3/uL (0.8-4.8) 05/08/24 13:58 [place] # (Auto) 0.9 10^3/uL (0.2-0.9) 05/08/24 13:58 Eos # (Auto) 0.1 10^3/uL (0.0-0.8) 05/08/24 13:58 Baso # (Auto) 0.1 10^3/uL (0.0-0.1) 05/08/24 13:58 Nucleated RBC % (auto) 0 % 05/08/24 13:58 Nucleated RBCs # 0.0 /100WBC 05/08/24 13:58 ESR 19 mm/hr (0-15) H 05/08/24 13:58 Sodium 142 mmol/L (136-145) 05/08/24 13:58 Potassium 4.0 mmol/L (3.5-5.1) 05/08/24 13:58 Chloride 105 mmol/L (98-107) 05/08/24 13:58 Carbon Dioxide 22 mmol/L (22-29) 05/08/24 13:58 Anion Gap 19.0 (5-19) 05/08/24 13:58 BUN 18 mg/dL (8-23) 05/08/24 13:58 Creatinine 1.0 mg/dL (0.5-0.9) H 05/08/24 13:58 GFR Calculation Not Reportable 05/08/24 13:58 Glucose 91 mg/dL (65-115) 05/08/24 13:58 Calculated Osmolality 295 mOsm/kg (285-295) 05/08/24 13:58 Calcium 9.3 mg/dL (8.5-10.5) 05/08/24 13:58 Total Bilirubin 0.7 mg/dL (0.15-1.2) 05/08/24 13:58 AST 19 U/L (0-32) 05/08/24 13:58 ALT 11 U/L (0-33) 05/08/24 13:58 Alkaline Phosphatase 96 U/L (35-105) 05/08/24 13:58 C-Reactive Protein 6.1 mg/L (0.0-4.9) H 05/08/24 13:58 Total Protein 7.5 g/dL (6.6-8.7) 05/08/24 13:58 Albumin 4.1 g/dL (3.5-5.2) 05/08/24 13:58 Globulin 3.4 g/dL (1.3-4.6) 05/08/24 13:58 All radiology interpretation(s) finalized by discharge Discharge Plan Discharge Patient Disposition: Home Clinical Impression: Periorbital dermatitis Insect bite Qualifiers: Encounter type: subsequent encounter Site of insect bite: upper arm Laterality: right Qualified Code(s): S40.861D - Insect bite (nonvenomous) of right upper arm, subsequent encounter Condition: Stable Prescriptions: No Action Eliquis 5 mg tablet 5 mg PO BID Qty: 180 1RF ewnykkxf-[id number]-[id number] 3.5-10,000-1 mg/mL-unit/mL-% drops,suspension 4 drp otic (ear) Q8H Qty: 10 0RF methylprednisolone [Medrol (Sergio)] 4 mg tablets,dose pack See Rx Instructions PO PER PKG DIR Qty: 21 0RF Rx Instructions: PO PER PKG DIR for 6 days pantoprazole 20 mg tablet,delayed release (DR/EC) See Rx Instructions .ROUTE .COMPLEX Qty: 180 0RF Dose Instruction: TAKE 1 TABLET BY MOUTH TWICE DAILY Rx Instructions: TAKE 1 TABLET BY MOUTH TWICE DAILY Discharge Orders: Discharge ED (Routine); Ordered 05/08/24 Ordered By: Felipe Keene Referrals: Nubia Us FNP [Primary Care Provider] - Discharge Diet: Usual diet Discharge Activity: Increase activity as tolerated Patient Instructions: Allergic Reaction Activity Restrictions/Additional Instructions: Use hydrocortisone cream around the eyes for redness and irritation. Avoid getting the hydrocortisone cream in the eye itself. For further comfort relief you can use something like coconut oil or a facial lotion to help keep the skin from being too dry. Drink plenty of water and fluids. Use Claritin or Zyrtec 1-2 tabs twice a day to help control itching and redness. Use Benadryl 1-2 tabs as needed for breakthrough itching or redness. Follow-up with primary care in 3 days for recheck. Return to ED for worsening symptoms such as fever greater than 100.4, increased difficulty breathing, or new concerns. Coding Level of Care Code ED Batch And Furnace Manager for Zina Kent
--- NOTE | 2024-05-08 14:01 | CT_ITS ---
WS: [id number] CT ORBITS, NONCONTRAST HISTORY: mild periorbital swelling, refuses contrast Technique: All CT scans at [facility] use at least one of these dose optimization techniques: automated exposure control; mA and/or kV adjustment per patient size (includes targeted exams where dose is matched to clinical indication); or iterative reconstruction. DLP: 348.46 mGy.cm COMPARISON: None available. Patient refused IV contrast. Very small amount of subcutaneous edema and stranding over the orbits an d sinuses. There is no focal fluid collection identified. No preseptal collection. The position of th e globes is normal. No air-fluid levels in the sinuses. No destructive bone lesions. Normal appearanc e of the mandibular condyles. CT/CT orbit BI wo con* [id number] IMPRESSION: Mild soft tissue edema over the maxillary sinuses and orbits. Otherwise negativ e.
[2024-05-08 14:17] LABS: Basophils # 0.1 10^3/uL (0.0-0.1); Basophils % 0.5 %; Eosinophils # 0.1 10^3/uL (0.0-0.8); Eosinophils % 0.8 %; Hematocrit 40.8 % (36-47); Lymphocytes # 1.8 10^3/uL (0.8-4.8); Lymphocytes % 19.1 %; Mean Corpuscular HGB Conc 33.1 g/dL (30-55); Mean Corpuscular Hemoglobin 31.1 pg (27-33); Mean Platelet Volume 10.7 fL (7.4-10.4); Monocytes # 0.9 10^3/uL (0.2-0.9); Monocytes % 9.7 %; Neutrophils # 6.66 10^3/uL (1.8-7.7); Neutrophils % 69.6 %; Nucleated Red Blood Cells % 0 %; Platelet Count 281 10^3/cmm (157-399); Red Blood Count 4.34 10^6/uL (3.85-5.65); Red Cell Distribution Width 11.9 % (12.1-15.1); White Blood Count 9.58 10^3/uL (3.29-11.43)
[2024-05-08 14:23] LABS: Erythrocyte Sedimentation Rate 19 mm/hr (0-15)
[2024-05-08 14:46] LABS: Alanine Aminotransferase 11 U/L (0-33); Albumin Level 4.1 g/dL (3.5-5.2); Alkaline Phosphatase 96 U/L (35-105); Aspartate Amino Transferase 19 U/L (0-32); Blood Urea Nitrogen 18 mg/dL (8-23); C Reactive Protein 6.1 mg/L (0.0-4.9); Calcium 9.3 mg/dL (8.5-10.5); Carbon Dioxide 22 mmol/L (22-29); Chloride 105 mmol/L (98-107); Creatinine Clr Calc Pharmacy 45.4278; Globulin 3.4 g/dL (1.3-4.6); Glucose 91 mg/dL (65-115); Osmolality Calculated 295 mOsm/kg (285-295); Sodium 142 mmol/L (136-145); Total Bilirubin 0.7 mg/dL (0.15-1.2); Total Protein 7.5 g/dL (6.6-8.7)
[2024-05-08] MEDS: methylPREDNISolone sod succ 125 mg/2 mL INJ 60 MG IVP (15:21)
[2024-05-08] MEDS: dexamethasone 10 mg/mL INJ IVP (15:27)
[2024-05-08 15:50] VITALS: BP 177/89; PULSE 75; O2SAT 98
[2024-05-08 15:53] VITALS: BP 177/89; PULSE 75; O2SAT 98
== END 2024-05-08 15:54 | disposition home or self-care (01) ==
PROVIDERS: Emergency Provider Nurse Practitioner Family; PCP Nurse Practitioner Family
DX: L71.0 Perioral dermatitis (principal); S40.861A Insect bite (nonvenomous) of right upper arm, initial encounter; W57.XXXA Bitten or stung by nonvenomous insect and other nonvenomous arthropods, initial encounter; Z79.01 Long term (current) use of anticoagulants; Z87.891 Personal history of nicotine dependence
CPT/HCPCS: 70480; 80053; 85025; 85651; 86140; 96374; 96375; 99285; J1100; J2919

== ENCOUNTER → 2024-07-03 09:35 | Outpatient (BNVA) | payer MEDICARE, OTHER, SELFPAY | PROVIDERS: PCP Nurse Practitioner Family; Referring Provider Nurse Practitioner Family; Visit Provider Student in an Organized Health Care Education/Training Program | DX: K62.5 Hemorrhage of anus and rectum (principal) | CPT/HCPCS: 99204; 99214 ==

== ENCOUNTER 2024-07-11 16:03 | Outpatient (CLI) | payer MEDICARE, OTHER, SELFPAY ==
--- NOTE | 2024-07-11 16:30 | USR_ITS ---
PROCEDURE INFORMATION: Exam: US Duplex Right Upper Extremity Veins, Limited Exam date and time: 07/11/2024 4:08 PM Age: 74 years old Clinical indication: Swelling (edema) of limb; Upper extremity, right; Additional info: M79.89 - other specified soft tissue disorders TECHNIQUE: Imaging protocol: Real-time duplex ultrasound of the right Upper Extremity with 2-D ruiz scale, color Doppler flow and spectral waveform analysis with image documentation. Limited exam focused on the right upper extremity veins. COMPARISON: No relevant prior studies available. FINDINGS: Right deep veins: Unremarkable. Axillary and brachial veins are patent throughout without thrombus. Normal Doppler waveforms. Normal compressibility and/or augmentation response. Visualized internal jugular and subclavian veins are patent. Superficial veins: Unremarkable. Visualized cephalic and basilic veins are patent without thrombus. Soft tissues: Unremarkable. US/[place] [id number] IMPRESSION: No evidence of deep vein thrombosis.
== END 2024-07-11 16:04 | disposition home or self-care (01) ==
LOC: RAD 16:04
PROVIDERS: PCP Nurse Practitioner Family; Visit Provider Nurse Practitioner Family
DX: M79.89 Other specified soft tissue disorders (principal)
CPT/HCPCS: 93971

== ENCOUNTER → 2024-07-24 10:42 | Outpatient (BNVA) | payer MEDICARE, OTHER, SELFPAY | PROVIDERS: PCP Nurse Practitioner Family; Visit Provider Nurse Practitioner Family | DX: N28.9 Disorder of kidney and ureter, unspecified (principal); R30.0 Dysuria; Z79.899 Other long term (current) drug therapy | CPT/HCPCS: 80053; 81000; 85025 ==

== ENCOUNTER 2024-08-20 14:56 | Outpatient (CLI) | payer MEDICARE, OTHER, SELFPAY ==
--- NOTE | 2024-08-20 15:00 | MM_ITS ---
WS: [id number] BILATERAL 3D TOMOSYNTHESIS DIGITAL SCREENING MAMMOGRAPHY WITH CAD CLINICAL INFORMATION: SCREENING HISTORY: Screening mammogram. No current complaints. COMPARISON: 2022 TECHNIQUE: Bilateral CC and MLO views. FINDINGS: Scattered fibroglandular densities bilaterally. No suspicious focal mass, asymmetry, calcifications, or architectural distortion. No evidence of malignancy. Incidental punctate calcifications. Stable sm all ovoid nodule anterior RIGHT breast MM/MM scr BI tomosynthesis [id number] IMPRESSION: DENSITY: There are scattered areas of fibroglandular density. BI-RADS: 2 - Benign. FOLLOW UP: 1 Year Follow-up Recommend return to annual screening mammography.
== END 2024-08-20 14:57 | disposition home or self-care (01) ==
LOC: MOBLMAM 14:57
PROVIDERS: PCP Nurse Practitioner Family; Visit Provider Nurse Practitioner Family
DX: Z12.31 Encounter for screening mammogram for malignant neoplasm of breast (principal); R92.323 Mammographic fibroglandular density, bilateral breasts; N63.10 Unspecified lump in the right breast, unspecified quadrant
CPT/HCPCS: 77063; 77067

== ENCOUNTER → 2024-12-11 09:21 | Outpatient (BNVA) | payer MEDICARE, OTHER, SELFPAY | PROVIDERS: PCP Nurse Practitioner Family; Visit Provider Nurse Practitioner Family | DX: N28.9 Disorder of kidney and ureter, unspecified (principal); Z79.899 Other long term (current) drug therapy; E55.9 Vitamin D deficiency, unspecified | CPT/HCPCS: 80053; 80061; 82306; 85025 ==

== ENCOUNTER 2025-02-19 12:19 | Outpatient (CLI) | payer MEDICARE, OTHER, SELFPAY ==
--- NOTE | 2025-02-19 12:22 | XR_ITS ---
WS: [email or web address] XR chest 2V* [id number] REASON FOR EXAM: R06.09 - Other forms of dyspnea FINDINGS: The chest is unchanged compared to 12/13/2023. Mild tortuosity of the thoracic aorta. Normal heart size. Calcified granulomatous disease bilaterally. No acute pulmonary parenchymal or pleural abnormality identified. Mild dextroscoliosis of the lower thoracic spine. XR/XR chest 2V* [id number] IMPRESSION: Stable chest without acute abnormality.
== END 2025-02-19 12:20 | disposition home or self-care (01) ==
LOC: RAD 12:21
PROVIDERS: PCP Nurse Practitioner Family; Visit Provider Nurse Practitioner Family
DX: R06.09 Other forms of dyspnea (principal); R93.89 Abnormal findings on diagnostic imaging of other specified body structures; J84.10 Pulmonary fibrosis, unspecified; M41.84 Other forms of scoliosis, thoracic region
CPT/HCPCS: 71046

== ENCOUNTER → 2025-06-02 09:09 | Outpatient (BNVA) | payer MEDICARE, OTHER, SELFPAY | PROVIDERS: PCP Nurse Practitioner Family; Visit Provider Nurse Practitioner Family | DX: I10 Essential (primary) hypertension (principal); R53.83 Other fatigue | CPT/HCPCS: 80053; 80061; 85025 ==

== ENCOUNTER → 2025-07-30 10:55 | Outpatient (BNVA) | payer MEDICARE, OTHER, SELFPAY | PROVIDERS: PCP Nurse Practitioner Family; Visit Provider Nurse Practitioner Family | DX: N39.0 Urinary tract infection, site not specified (principal) | CPT/HCPCS: 81000 ==

== ENCOUNTER 2025-07-31 11:26 | Outpatient (CLI) | payer MEDICARE, OTHER, SELFPAY ==
--- NOTE | 2025-07-31 11:41 | XR_ITS ---
WS: [email or web address] XR lumbar spine 2-3V* [id number] REASON FOR EXAM: M54.9 - Dorsalgia, unspecified FINDINGS: Moderate decreased bone density. Mild rotatory dextroscoliosis. Straightening of the normal lordosis. Mild chronic appearing biconcave compression deformities of L1 and L2. Significant narrowing of the intervertebral disc spaces L2-S1. No spondylolysis. No significant neutral spondylolisthesis. XR/XR lumbar spine 2-3V* [id number] IMPRESSION: Multilevel degenerative spondylosis of the lumbar spine.
--- NOTE | 2025-07-31 11:41 | XR_ITS ---
WS: [email or web address] XR knee RT 3V* [id number] REASON FOR EXAM: M25.561 - Pain in right knee FINDINGS: No fracture or focal bone lesion. There is narrowing of the medial joint space with mild subchondral sclerosis and mild osteophytosis. There is a concave deformity of the articular medial tibial plateau possibly secondary to previous healed tibial plateau fracture. A more significant narrowing of the lateral knee joint space with moderate subchondral sclerosis and osteophytosis. Mild narrowing of the patellofemoral joint space with mild subchondral sclerosis and osteophytosis of the patella. XR/XR knee RT 3V* [id number] IMPRESSION: There may be significant osteoarthritis in the medial and lateral joint spaces. The AP views are obliqued and the narrowing does not appear significant howeve r on the lateral view there appears to be [id number]-ci-[id number] or near afce-[id number] art iculation.
== END 2025-07-31 11:27 | disposition home or self-care (01) ==
PROVIDERS: PCP Nurse Practitioner Family; Visit Provider Nurse Practitioner Family
DX: M25.561 Pain in right knee (principal); M54.9 Dorsalgia, unspecified; M47.896 Other spondylosis, lumbar region; M85.9 Disorder of bone density and structure, unspecified; M40.56 Lordosis, unspecified, lumbar region; M48.56XA Collapsed vertebra, not elsewhere classified, lumbar region, initial encounter for fracture; X58.XXXA Exposure to other specified factors, initial encounter; M51.369 Other intervertebral disc degeneration, lumbar region without mention of lumbar back pain or lower extremity pain; M17.11 Unilateral primary osteoarthritis, right knee; M21.961 Unspecified acquired deformity of right lower leg
CPT/HCPCS: 72100; 73562

== ENCOUNTER 2025-09-09 09:00 | Outpatient (RCR) | payer MEDICARE, OTHER, SELFPAY | END 2025-09-13 23:59 | disposition home or self-care (01) | LOC: WPT 09:00 | PROVIDERS: PCP Nurse Practitioner Family; Visit Provider Nurse Practitioner Family | DX: M51.362 Other intervertebral disc degeneration, lumbar region with discogenic back pain and lower extremity pain (principal) | CPT/HCPCS: 97110; 97112; 97161; 97530 ==

== ENCOUNTER 2025-09-16 09:58 | Outpatient (CLI) | payer MEDICARE, OTHER, SELFPAY ==
--- NOTE | 2025-09-16 10:00 | MM_ITS ---
WS: [email or web address] BILATERAL SCREENING DIGITAL TOMOSYNTHESIS MAMMOGRAM WITH CAD HISTORY: Z12.39 - Encounter for other screening for malignant neop... COMPARISON: 08/20/2024, 05/28/2023, 05/15/2018 Bilateral CC and MLO views with tomosynthesis and synthetic mammography submitted. Computer aided detection analyzed. Breast composition: There are scattered areas of fibroglandular density. No suspicious masses, microcalcifications or architectural distortion. Scattered benign calcifications in each breast. No interval change. MM/MM scr tomosynthesis [id number] IMPRESSION: BI-RADS: 2 - Benign. FOLLOW UP: 1 Year Follow-up
== END 2025-09-16 09:59 | disposition home or self-care (01) ==
PROVIDERS: PCP Nurse Practitioner Family; Visit Provider Nurse Practitioner Family
DX: Z12.31 Encounter for screening mammogram for malignant neoplasm of breast (principal); R92.323 Mammographic fibroglandular density, bilateral breasts; R92.1 Mammographic calcification found on diagnostic imaging of breast
CPT/HCPCS: 77063; 77067

== ENCOUNTER 2025-10-05 12:59 | Outpatient (RCR) | payer MEDICARE, OTHER, SELFPAY | END 2025-10-14 23:59 | disposition home or self-care (01) | LOC: WPT 12:59 | PROVIDERS: PCP Nurse Practitioner Family; Visit Provider Nurse Practitioner Family | DX: M51.362 Other intervertebral disc degeneration, lumbar region with discogenic back pain and lower extremity pain (principal) | CPT/HCPCS: 97110; 97112; 97530 ==